=== PATIENT | male | born 1975 | race Caucasian/White ===

== ENCOUNTER 2016-09-14 14:41 | Inpatient (IN) | payer OTHER ==
[2016-09-14 17:31] VITALS: BMI 27.4
--- NOTE | 2016-09-14 18:39 | HP ---
COWS - Scale Resting Pulse: 1= [place] 81-100 Sweatin= Chills/Flushing Restless Observation: 3= Extraneous Movement Pupil Size: 2= Moderately Dilated Bone or Joint Aches: 1= Mild Discomfort Runny Nose/ Eye Tearin= Runny Nose/Eyes GI Upset > 30mins: 1= Stomach Cramp Tremor Observation: 2= Slight Tremor Visible Yawning Observation: 0= None Anxiety or Irritability: 2=Irritable/Anxious Goose Flesh Skin: 3=Piloerection COWS Score: 18 Admission [facility] - HPI Chief Complaint: WITHDRAWAL SX Allergies/Adverse Reactions: Allergies Allergy/AdvReac Type Severity Reaction Status Date / Time No Known Allergies Allergy Verified 09/14/16 18:55 History of Present Illness: 41 YEARS OLD MALE WITH OPIATE NICOTINE DEPENDENCE HAS ASTHMA BIPOLAR LONGEST SOBRIETY 3 YEARS IS ADMITTED TO DETOX Exam Limitations: No Limitations - Ebola screening Have you traveled outside of the country in the last 21 days: No Have you had contact with anyone from an Ebola affected area: No Have you been sick,other than usual withdrawal symptoms: No Do you have a fever: No - Review of Systems Constitutional: Chills, Changes in sleep EENT: reports: Hearing Loss (HEARING AID AT HOME), Other (EYE GLASSESS AT HOME) Respiratory: reports: No Symptoms reported Cardiac: reports: No Symptoms Reported GI: reports: Diarrhea, Nausea, Poor Fluid Intake, Indigestion, Abdominal cramping : reports: No Symptoms Reported Musculoskeletal: reports: Back Pain, Joint Pain, Muscle Pain, Neck Pain Integumentary: reports: No Symptoms Reported Neuro: reports: Seizure (LAST SEIZURE 10 YEARS AGO), Tremors Endocrine: reports: No Symptoms Reported Hematology: reports: No Symptoms Reported Psychiatric: reports: No Sypmtoms Reported, Judgement Intact, Mood/Affect Appropiate, Orientated x3 Other Systems: Reviewed and Negative Patient History - Patient Medical History Hx Anemia: No Hx Asthma: Yes Hx Chronic Obstructive Pulmonary Disease (COPD): No Hx Cancer: No Hx Cardiac Disorders: No Hx Congestive Heart Failure: No Hx Hypertension: No Hx Hypercholesterolemia: No Hx Pacemaker: No HX Cerebrovascular Accident: No Hx Seizures: No Hx Dementia: No Hx Diabetes: No Hx Gastrointestinal Disorders: No Hx Liver Disease: No Hx Genitourinary Disorders: No Hx Sexually Transmitted Disorders: No Hx Renal Disease (ESRD): No Hx Thyroid Disease: No Hx Human Immunodeficiency Virus (HIV): No Hx Hepatitis C: No Hx Depression: Yes Hx Suicide Attempt: No Hx Bipolar Disorder: Yes Hx Schizophrenia: No - Patient Surgical History Past Surgical History: No - PPD History Previous Implant?: Yes Documented Results: Negative w/o proof Implanted On Prior [facility] Admission?: Yes Date: 04/03/16 PPD to be Administered?: No - Smoking Cessation Smoking history: Current every day smoker Have you smoked in the past 12 months: No Aproximately how many cigarettes per day: 5 Cigars Per Day: 0 Hx Chewing Tobacco Use: No Initiated information on smoking cessation: Yes 'Breaking Loose' booklet given: 09/14/16 - Substance & Tx. History Hx Alcohol Use: No Hx Substance Use: Yes Substance Use Type: Heroin Hx Substance Use Treatment: Yes - Substances Abused Heroin Route: Inhalation Frequency: Daily Amount used: 6 BAGS Age of first use: 41 Date of Last Use: 09/14/16 Family Disease History - Family Disease History Family Disease History: Heart Disease: Father (alcoholic), Other: Father, Mother (herion over dose ) Admission Physical Exam S - Vital Signs Vital Signs: Vital Signs - 24 hr 09/14/16 17:29 Temperature 95.9 F L Pulse Rate 81 Respiratory 20 Rate Blood Pressure 127/78 - Physical General Appearance: Yes: Nourished, Appropriately Dressed, Mild Distress, Tremorous, Irritable, Sweating, Anxious HEENTM: Yes: Hearing grossly Normal, Normal ENT Inspection, Normocephalic, Normal Voice Respiratory: Yes: Chest Non-Tender, Lungs Clear, Normal Breath Sounds, No Respiratory Distress, No Accessory Muscle Use Neck: Yes: Supple, Trachea in good position Breast: Yes: Breasts Symetrical Cardiology: Yes: Regular Rhythm, Regular Rate, S1, S2 Abdominal: Yes: Non Tender, Soft Genitourinary: Yes: Within Normal Limits Back: Yes: Normal Inspection Musculoskeletal: Yes: full range of Motion, Gait Steady, Back pain, Muscle Pain (KNEES) Extremities: Yes: Normal Inspection, Normal Range of Motion, Non-Tender, Tremors Neurological: Yes: Fully Oriented, Alert, Motor Strength 5/5, Normal Response Integumentary: Yes: Warm Lymphatic: Yes: Within Normal Limits - Diagnostic (1) Opioid dependence with withdrawal Current Visit: Yes Status: Acute (2) Asthma Current Visit: Yes Status: Acute Qualifiers: Asthma severity: mild intermittent Asthma complication type: with status asthmaticus Qualified Code(s): J45.22 - Mild intermittent asthma with status asthmaticus (3) GERD (gastroesophageal reflux disease) Current Visit: Yes Status: Acute Qualifiers: Esophagitis presence: without esophagitis Qualified Code(s): K21.9 - Gastro-esophageal reflux disease without esophagitis Cleared for Admission [facility] - Detox or Rehab S Level of Care: Medically Managed Detox Regimen/Protocol: Methadone S Breath Alcohol Content Breath Alcohol Content: 0 Urine Drug Screen - Results Drug Screen Negative: No Urine Drug Screen Results: THC-Marijuana, OPI-Opiates
[2016-09-14] MEDS ORDERED: MENTHOL/PHENOL 1 EACH UD MM PRN (18:40)
[2016-09-14] MEDS ORDERED: METHADONE HCL 10 MG TABLET (FOR DETOX USE ONLY) PO ONE ×2 (18:40→23:00)
[2016-09-14] MEDS ORDERED: NICOTINE POLACRILEX 2 MG GUM BC PRN (18:40)
[2016-09-14] MEDS ORDERED: LOPERAMIDE HCL 2 MG CAPSULE PO PRN (18:40)
[2016-09-14] MEDS ORDERED: MAGNESIUM HYDROX 2400MG/30ML ORAL SUSPENSION 30 ML CUP PO PRN (18:40)
[2016-09-14] MEDS ORDERED: MAGNESIUM CITRATE 300 ML BOTTLE PO PRN (18:40)
[2016-09-14] MEDS ORDERED: P-EPHED 60MG/TRIPROLIDI 2.5MG TABLET PO PRN (18:40)
[2016-09-14] MEDS ORDERED: MAG HYDROX/AL HYDROX/SIMETH 30 ML UNIT-DOSE CUP PO PRN (18:40)
[2016-09-14] MEDS ORDERED: guaiFENesin/D-METHORPHAN HB 10 ML UNIT-DOSE CUPS PO PRN (18:40)
[2016-09-14] MEDS ORDERED: diphenhydrAMINE HCL 50 MG CAPSULE PO PRN (18:40)
[2016-09-14] MEDS ORDERED: ALBUTEROL SO4 6.7 GM HFA INHALER IH PRN (18:42)
[2016-09-14] MEDS: diazePAM 5 MG TABLET PO PRN (19:51)
[2016-09-14] MEDS: THIAMINE HCL 100 MG TABLET (FP) PO SCH (22:37)
[2016-09-14] MEDS: RANITIDINE HCL 150 MG TABLET (FP) PO SCH (22:54)
[2016-09-14 23:15] LABS: URINE APPEARANCE CLEAR; URINE BILIRUBIN NEGATIVE (NEGATIVE); URINE BLOOD NEGATIVE (NEGATIVE); URINE COLOR LTYELLOW; URINE GLUCOSE (UA) NEGATIVE (NEGATIVE); URINE KETONE NEGATIVE (NEGATIVE); URINE LEUK ESTERASE NEGATIVE (NEGATIVE); URINE NITRITE NEGATIVE (NEGATIVE); URINE PROTEIN NEGATIVE (NEGATIVE); URINE UROBILINOGEN NEGATIVE E.U./dl (0.2-1.0)
[2016-09-15] MEDS: diazePAM 5 MG TABLET PO PRN ×4 (05:45→20:01)
[2016-09-15] MEDS ORDERED: METHADONE HCL 10 MG TABLET (FOR DETOX USE ONLY) PO ONE (10:00)
[2016-09-15 10:06] LABS: MCH 29.7 pg (25.7-33.7); MCHC 33.6 g/dl (32.0-35.9); MEAN CELL VOLUME 88.4 fl (80-96); MEAN PLT VOLUME 7.6 fl (7.5-11.1); PLATELET COUNT 201 K/MM3 (134-434); RDW 13.2 % (11.9-15.9); WHITE BLOOD COUNT 6.4 K/mm3 (4.0-10.0)
[2016-09-15] MEDS: PRENATAL VITAMINS W/ FOLIC ACID TABLET (FP) PO SCH (10:13)
[2016-09-15] MEDS: NICOTINE 14 MG/24 HOURS TOPICAL PATCH TD SCH (10:13)
[2016-09-15] MEDS: RANITIDINE HCL 150 MG TABLET (FP) PO SCH ×2 (10:15→22:16)
[2016-09-15 10:47] LABS: HIV 1 & 2 AB NEGATIVE; HIV 1 AGp24 NEGATIVE
[2016-09-15 10:48] LABS: ALBUMIN 3.2 g/dl (3.4-5.0); ALK PHOS 77 U/L (45-117); ANION GAP 7 (8-16); BILIRUBIN,TOTAL 0.5 mg/dL (0.2-1.0); CALCIUM 8.2 mg/dL (8.5-10.1); CO2 29 mmol/L (21-32); CREATININE 1.1 mg/dL (0.7-1.3); GLUCOSE,RANDOM 85 mg/dL (74-106); SGOT/AST 15 U/L (15-37); SGPT/ALT 23 U/L (12-78); TOT PROT 5.6 g/dl (6.4-8.2)
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
--- NOTE | 2016-09-15 12:49 | EKG ---
Test Reason : Blood Pressure : / mmHG Vent. Rate : 065 BPM Atrial Rate : 065 BPM P-R Int : 142 ms QRS Dur : 092 ms QT Int : 394 ms P-R-T Axes : 065 070 041 degrees QTc Int : 409 ms NORMAL SINUS RHYTHM NORMAL ECG NO PREVIOUS ECGS AVAILABLE Confirmed by ORVILLE MONTOYA MD ([id number]) on 09/15/2016 12:49:05 PM Referred By: Confirmed By:ORVILLE MONTOYA MD
[2016-09-15] MEDS: CYCLOBENZAPRINE HCL 10 MG TABLET (FP) PO SCH ×2 (13:17→22:16)
[2016-09-15] MEDS ORDERED: QUEtiapine FUMARATE 100 MG TABLET (FP) PO SCH (22:00)
[2016-09-15] MEDS: ZOLPIDEM TARTRATE 10 MG TABLET (PARK CARE ONLY) PO SCH (22:16)
[2016-09-15] MEDS: NAPROXEN 500 MG TABLET (FP) PO SCH (22:16)
[2016-09-15] MEDS: THIAMINE HCL 100 MG TABLET (FP) PO SCH (22:16)
[2016-09-15] MEDS: cloNIDine HCL 0.1 MG TABLET PO SCH (22:16)
[2016-09-16] MEDS: diazePAM 5 MG TABLET PO PRN ×3 (05:47→22:21)
[2016-09-16] MEDS: CYCLOBENZAPRINE HCL 10 MG TABLET (FP) PO SCH ×3 (05:47→22:19)
--- NOTE | 2016-09-16 09:43 | PN ---
[facility] COWS - Scale Resting Pulse: 0= [place] 80 or Below Sweatin= Chills/Flushing Restless Observation: 1= Difficult to Sit Still Pupil Size: 1= Pupils >than Normal Bone or Joint Aches: 1= Mild Discomfort Runny Nose/ Eye Tearin= Nasal Congestion GI Upset > 30mins: 2= Nausea/Diarrhea Tremor Observation of Outstretched Hands: 2= Slight Tremor Visible Yawning Observation: 1= 1-2x During Session Anxiety or Irritability: 2=Irritable/Anxious Goose Flesh Skin: 3=Piloerection COWS Score: 15 [facility] Progress Note (SOAP) Subjective: nausea, sweats, interrupted sleep, anxiety, tremor Objective: 09/16/16 09:42 Vital Signs - 24 hr 09/15/16 09/15/16 09/15/16 14:28 17:51 22:20 Temperature 96.9 F L 96.5 F L 96.6 F L Pulse Rate 72 61 59 L Respiratory 20 16 19 Rate Blood Pressure 117/79 97/58 106/72 09/16/16 09/16/16 09/16/16 00:29 03:30 06:35 Temperature 96.5 F L Pulse Rate 54 L Respiratory 18 18 16 Rate Blood Pressure 96/65 09/16/16 09:29 Temperature 96.5 F L Pulse Rate 63 Respiratory 16 Rate Blood Pressure 102/68 Laboratory Tests 09/14/16 09/15/16 09/15/16 23:00 07:00 07:00 WBC 6.4 RBC 4.36 Hgb 12.9 Hct 38.6 MCV 88.4 MCHC 33.6 RDW 13.2 Plt Count 201 MPV 7.6 Sodium 141 Potassium 4.1 Chloride 105 Carbon Dioxide 29 Anion Gap 7 L BUN 12 Creatinine 1.1 Creat Clearance w eGFR > 60 Random Glucose 85 Calcium 8.2 L Total Bilirubin 0.5 AST 15 D ALT 23 D Alkaline Phosphatase 77 Total Protein 5.6 L Albumin 3.2 L Urine Color Ltyellow Urine Appearance Clear Urine pH 7.0 Ur Specific [place] 1.018 Urine Protein Negative Urine Glucose (UA) Negative Urine Ketones Negative Urine Blood Negative Urine Nitrite Negative Urine Bilirubin Negative Urine Urobilinogen Negative Ur Leukocyte Esterase Negative RPR Titer HIV 1&2 Antibody Screen HIV P24 Antigen 09/15/16 09/15/16 07:00 07:00 WBC RBC Hgb Hct MCV MCHC RDW Plt Count MPV Sodium Potassium Chloride Carbon Dioxide Anion Gap BUN Creatinine Creat Clearance w eGFR Random Glucose Calcium Total Bilirubin AST ALT Alkaline Phosphatase Total Protein Albumin Urine Color Urine Appearance Urine pH Ur Specific [place] Urine Protein Urine Glucose (UA) Urine Ketones Urine Blood Urine Nitrite Urine Bilirubin Urine Urobilinogen Ur Leukocyte Esterase RPR Titer Nonreactive HIV 1&2 Antibody Screen Negative HIV P24 Antigen Negative Assessment: 09/16/16 09:43 withdrawal sx Plan: cont detox
[2016-09-16] MEDS ORDERED: METHADONE HCL 5 MG TABLET (FOR DETOX USE ONLY) PO ONE (10:00)
[2016-09-16] MEDS: PRENATAL VITAMINS W/ FOLIC ACID TABLET (FP) PO SCH (10:27)
[2016-09-16] MEDS: NAPROXEN 500 MG TABLET (FP) PO SCH ×2 (10:27→22:19)
[2016-09-16] MEDS: cloNIDine HCL 0.1 MG TABLET PO SCH ×2 (10:27→23:08)
[2016-09-16] MEDS: NICOTINE 14 MG/24 HOURS TOPICAL PATCH TD SCH (10:28)
[2016-09-16] MEDS: RANITIDINE HCL 150 MG TABLET (FP) PO SCH ×2 (10:28→22:19)
--- NOTE | 2016-09-16 16:33 | PN ---
[facility] Progress Note Note: Psychiatry Attending's note : Approached by patient. Complaint :sedation. Mr Mendez requests reduction of seroquel dose. He wants to stay at 50 mg po at bedtime. Plan : seroquel 100 mg/hs is discontinued. seroquel 50 mg po hs.Ordered. Normal vitals.Noted steady gait. Stable mental status. Addendum : Patient met a second time with this creative writer. 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 He declines to continue seroquel. Plan : Seroquel is discontinued.
[2016-09-16] MEDS: ACETAMINOPHEN 325 MG TABLET (FP) PO PRN ×2 (16:42→22:58)
[2016-09-16] MEDS ORDERED: QUEtiapine FUMARATE 50 MG TABLET PO SCH (22:00)
[2016-09-16] MEDS: ZOLPIDEM TARTRATE 10 MG TABLET (PARK CARE ONLY) PO SCH (22:18)
[2016-09-16] MEDS: THIAMINE HCL 100 MG TABLET (FP) PO SCH (22:19)
[2016-09-17] MEDS: CYCLOBENZAPRINE HCL 10 MG TABLET (FP) PO SCH ×3 (05:33→22:17)
[2016-09-17] MEDS: diazePAM 5 MG TABLET PO PRN ×3 (05:34→15:04)
[2016-09-17] MEDS ORDERED: METHADONE HCL 5 MG TABLET (FOR DETOX USE ONLY) PO ONE (10:00)
[2016-09-17] MEDS: cloNIDine HCL 0.1 MG TABLET PO SCH ×2 (10:08→22:17)
[2016-09-17] MEDS: RANITIDINE HCL 150 MG TABLET (FP) PO SCH ×2 (10:08→22:17)
[2016-09-17] MEDS: NICOTINE 14 MG/24 HOURS TOPICAL PATCH TD SCH (10:08)
[2016-09-17] MEDS: NAPROXEN 500 MG TABLET (FP) PO SCH ×2 (10:08→22:17)
[2016-09-17] MEDS: PRENATAL VITAMINS W/ FOLIC ACID TABLET (FP) PO SCH (10:08)
--- NOTE | 2016-09-17 12:42 | PN ---
[facility] Progress Note (SOAP) Subjective: nausea, sweatws, interrupted sleep, anxiety, tremor Objective: 09/17/16 12:41 Vital Signs - 8 hr 09/17/16 09/17/16 09/17/16 06:32 09:57 10:01 Temperature 96.7 F L 96.0 F L 96.0 F L Pulse Rate 58 L 68 68 Respiratory 16 18 18 Rate Blood Pressure 102/70 116/75 116/75 Laboratory Tests 09/14/16 09/15/16 09/15/16 23:00 07:00 07:00 WBC 6.4 RBC 4.36 Hgb 12.9 Hct 38.6 MCV 88.4 MCHC 33.6 RDW 13.2 Plt Count 201 MPV 7.6 Sodium 141 Potassium 4.1 Chloride 105 Carbon Dioxide 29 Anion Gap 7 L BUN 12 Creatinine 1.1 Creat Clearance w eGFR > 60 Random Glucose 85 Calcium 8.2 L Total Bilirubin 0.5 AST 15 D ALT 23 D Alkaline Phosphatase 77 Total Protein 5.6 L Albumin 3.2 L Urine Color Ltyellow Urine Appearance Clear Urine pH 7.0 Ur Specific [place] 1.018 Urine Protein Negative Urine Glucose (UA) Negative Urine Ketones Negative Urine Blood Negative Urine Nitrite Negative Urine Bilirubin Negative Urine Urobilinogen Negative Ur Leukocyte Esterase Negative RPR Titer HIV 1&2 Antibody Screen HIV P24 Antigen 09/15/16 09/15/16 07:00 07:00 WBC RBC Hgb Hct MCV MCHC RDW Plt Count MPV Sodium Potassium Chloride Carbon Dioxide Anion Gap BUN Creatinine Creat Clearance w eGFR Random Glucose Calcium Total Bilirubin AST ALT Alkaline Phosphatase Total Protein Albumin Urine Color Urine Appearance Urine pH Ur Specific [place] Urine Protein Urine Glucose (UA) Urine Ketones Urine Blood Urine Nitrite Urine Bilirubin Urine Urobilinogen Ur Leukocyte Esterase RPR Titer Nonreactive HIV 1&2 Antibody Screen Negative HIV P24 Antigen Negative hypoalbuminemia Assessment: 09/17/16 12:41 withdrawal sx, malnutrition with low albumin Plan: cont detox, fluids, dietary counseling provided re : healthy eating habits
[2016-09-17] MEDS: ZOLPIDEM TARTRATE 10 MG TABLET (PARK CARE ONLY) PO SCH (22:17)
[2016-09-17] MEDS: THIAMINE HCL 100 MG TABLET (FP) PO SCH (22:17)
[2016-09-18] MEDS: ACETAMINOPHEN 325 MG TABLET (FP) PO PRN (00:45)
[2016-09-18] MEDS: CYCLOBENZAPRINE HCL 10 MG TABLET (FP) PO SCH (05:32)
--- NOTE | 2016-09-18 09:00 | PN ---
S Progress Note (SOAP) Subjective: no complaints Objective: 09/18/16 08:57 Vital Signs - 24 hr 09/17/16 09/17/16 09/17/16 09:57 10:01 13:31 Temperature 96.0 F L 96.0 F L 97.4 F L Pulse Rate 68 68 66 Respiratory 18 18 18 Rate Blood Pressure 116/75 116/75 118/77 09/17/16 09/17/16 09/18/16 18:03 21:38 00:10 Temperature 96.9 F L 96.6 F L Pulse Rate 86 71 Respiratory 18 18 18 Rate Blood Pressure 102/64 108/59 09/18/16 09/18/16 03:30 06:21 Temperature 97.1 F L Pulse Rate 65 Respiratory 18 18 Rate Blood Pressure 114/69 Laboratory Tests 09/14/16 09/15/16 09/15/16 23:00 07:00 07:00 WBC 6.4 RBC 4.36 Hgb 12.9 Hct 38.6 MCV 88.4 MCHC 33.6 RDW 13.2 Plt Count 201 MPV 7.6 Sodium 141 Potassium 4.1 Chloride 105 Carbon Dioxide 29 Anion Gap 7 L BUN 12 Creatinine 1.1 Creat Clearance w eGFR > 60 Random Glucose 85 Calcium 8.2 L Total Bilirubin 0.5 AST 15 D ALT 23 D Alkaline Phosphatase 77 Total Protein 5.6 L Albumin 3.2 L Urine Color Ltyellow Urine Appearance Clear Urine pH 7.0 Ur Specific [place] 1.018 Urine Protein Negative Urine Glucose (UA) Negative Urine Ketones Negative Urine Blood Negative Urine Nitrite Negative Urine Bilirubin Negative Urine Urobilinogen Negative Ur Leukocyte Esterase Negative RPR Titer HIV 1&2 Antibody Screen HIV P24 Antigen 09/15/16 09/15/16 07:00 07:00 WBC RBC Hgb Hct MCV MCHC RDW Plt Count MPV Sodium Potassium Chloride Carbon Dioxide Anion Gap BUN Creatinine Creat Clearance w eGFR Random Glucose Calcium Total Bilirubin AST ALT Alkaline Phosphatase Total Protein Albumin Urine Color Urine Appearance Urine pH Ur Specific [place] Urine Protein Urine Glucose (UA) Urine Ketones Urine Blood Urine Nitrite Urine Bilirubin Urine Urobilinogen Ur Leukocyte Esterase RPR Titer Nonreactive HIV 1&2 Antibody Screen Negative HIV P24 Antigen Negative hypoalbuminemia Assessment: 09/18/16 08:58 completed detox, medically stable, would like to be d/c today on 10mg malnutrition 2/2 substance use Plan: d/c today, referred to suboxone program on discharge for MAT, reviewed bloodwork , dietary counseling provided re: heal;thy eating habits, encoruage fluids
--- NOTE | 2016-09-18 09:02 | DS ---
[facility] Detox Discharge Summary Admission Date: 09/14/16 Discharge Date: 09/18/16 - History Present History: Cannabis Dependence, Opioid Dependence Pertinent Past History: anorexia, wt loss, anxiety, depression, insomnia, nicotien dependence with withdrawal sx - Physical Exam Results Vital Signs: Vital Signs Temperature 97.1 F L 09/18/16 06:21 Pulse Rate 65 09/18/16 06:21 Respiratory Rate 18 09/18/16 06:21 Blood Pressure 114/69 09/18/16 06:21 O2 Sat by Pulse Oximetry (%) Pertinent Admission Physical Exam Findings: withdrawal sx - Treatment Hospital Course: Detox Protocol Followed, Detoxed Safely, Responded well, Discharged Condition Good, Rehab Referral Accepted Patient has Accepted a Rehab Referral to: Yes - Medication Discharge Medications: Ambulatory Orders Albuterol Sulfate Inhaler - [Ventolin HFA Inhaler -] 2 inh PO Q4H 04/01/16 Naproxen [Naprosyn -] 500 mg PO BID 04/01/16 - Diagnosis (1) Malnutrition Current Visit: Yes Status: Acute (2) Marijuana dependence Current Visit: Yes Status: Chronic (3) Nicotine dependence Current Visit: Yes Status: Chronic Qualifiers: Nicotine product type: cigarettes Substance use status: in withdrawal Qualified Code(s): F17.213 - Nicotine dependence, cigarettes, with withdrawal (4) Opioid dependence with withdrawal Current Visit: Yes Status: Chronic (5) Substance induced mood disorder Current Visit: Yes Status: Acute (6) Asthma Current Visit: Yes Status: Chronic Qualifiers: Asthma severity: mild intermittent Asthma complication type: with status asthmaticus Qualified Code(s): J45.22 - Mild intermittent asthma with status asthmaticus (7) GERD (gastroesophageal reflux disease) Current Visit: Yes Status: Chronic Qualifiers: Esophagitis presence: without esophagitis Qualified Code(s): K21.9 - Gastro-esophageal reflux disease without esophagitis (8) Bipolar disorder Current Visit: No Status: Suspected - AMA Did Patient Leave Against Medical Advice: No
--- NOTE | 2016-09-18 09:21 | DS ---
[facility] Detox Discharge Summary Admission Date: 09/14/16 - Physical Exam Results Vital Signs: Vital Signs Temperature 97.1 F L 09/18/16 06:21 Pulse Rate 65 09/18/16 06:21 Respiratory Rate 18 09/18/16 06:21 Blood Pressure 114/69 09/18/16 06:21 O2 Sat by Pulse Oximetry (%) - Medication Discharge Medications: Ambulatory Orders Albuterol Sulfate Inhaler - [Ventolin HFA Inhaler -] 2 puff IH Q4H PRN #1 inhaler 09/18/16 Cyclobenzaprine HCl [Flexeril -] 10 mg PO TID #90 tablet 09/18/16 Gabapentin [Neurontin -] 300 mg PO TID #90 capsule 09/18/16 Naproxen [Naprosyn -] 500 mg PO BID #60 tablet 09/18/16 - Diagnosis (1) Malnutrition Current Visit: Yes Status: Acute (2) Marijuana dependence Current Visit: Yes Status: Chronic (3) Nicotine dependence Current Visit: Yes Status: Chronic Qualifiers: Nicotine product type: cigarettes Substance use status: in withdrawal Qualified Code(s): F17.213 - Nicotine dependence, cigarettes, with withdrawal (4) Opioid dependence with withdrawal Current Visit: Yes Status: Chronic (5) Substance induced mood disorder Current Visit: Yes Status: Acute (6) Asthma Current Visit: Yes Status: Chronic Qualifiers: Asthma severity: mild intermittent Asthma complication type: with status asthmaticus Qualified Code(s): J45.22 - Mild intermittent asthma with status asthmaticus (7) GERD (gastroesophageal reflux disease) Current Visit: Yes Status: Chronic Qualifiers: Esophagitis presence: without esophagitis Qualified Code(s): K21.9 - Gastro-esophageal reflux disease without esophagitis (8) Bipolar disorder Current Visit: No Status: Suspected
[2016-09-18 09:58] VITALS: BP 116/82; PULSE 63; TEMP 95.9
[2016-09-18] MEDS ORDERED: METHADONE HCL 10 MG TABLET (FOR DETOX USE ONLY) PO ONE (10:00)
[2016-09-18] MEDS: PRENATAL VITAMINS W/ FOLIC ACID TABLET (FP) PO SCH (10:14)
[2016-09-18] MEDS: RANITIDINE HCL 150 MG TABLET (FP) PO SCH (10:14)
[2016-09-18] MEDS: NICOTINE 14 MG/24 HOURS TOPICAL PATCH TD SCH (10:14)
[2016-09-18] MEDS: NAPROXEN 500 MG TABLET (FP) PO SCH (10:14)
[2016-09-18] MEDS: cloNIDine HCL 0.1 MG TABLET PO SCH (10:14)
--- NOTE | 2016-09-18 10:52 | PN ---
[facility] Progress Note Note: Psychiatry Attending's note : Patient asked to see this tag writer for recommendation for " anger management." He had declined to take seroquel (oversedation) or any other psychotropic medications. Mr Mendez has expressed concern about their side effects/impact on his ability to work. He insisted on having tag writer contact his counselor,Sorin Mckinney,at [facility]. Purpose :recommendations for outpatient care.Spoke with Mr Mckinney via telephone. Patient gave his verbal consent.He and his counselor Timbo witnessed this conversation. Hank indicates that referral to a psychiatrist will be included in the patient's follow-up. Uneventful hospital course.Stable mental status.Patient is appropriate for discharge.
[2016-09-18] MEDS ORDERED: GABAPENTIN 300 MG CAPSULE (FP) PO SCH (14:00)
[2016-09-19] MEDS ORDERED: METHADONE HCL 5 MG TABLET (FOR DETOX USE ONLY) PO ONE (06:00)
== END 2016-09-18 10:38 | disposition home or self-care (01) | DRG 773 ==
LOC: YASAS 14:41 → Y3N 19:07
PROVIDERS: ADMIT Internal Medicine; ATTEND Internal Medicine
PROC: HZ2ZZZZ Detoxification Services for Substance Abuse Treatment (ICD-10-PCS; principal; 2016-09-14)
DX: F11.23 Opioid dependence with withdrawal (principal); F12.20 Cannabis dependence, uncomplicated; F17.210 Nicotine dependence, cigarettes, uncomplicated; F19.24 Other psychoactive substance dependence with psychoactive substance-induced mood disorder; F31.9 Bipolar disorder, unspecified; E46 Unspecified protein-calorie malnutrition; Z68.27 Body mass index [BMI] 27.0-27.9, adult; J45.22 Mild intermittent asthma with status asthmaticus; K21.9 Gastro-esophageal reflux disease without esophagitis; E88.09 Other disorders of plasma-protein metabolism, not elsewhere classified
CPT/HCPCS: 36415; 80053; 81003; 85027; 86593; 87389; 93005; 93010